=== PATIENT | male | born 2000 | race Caucasian/White ===

== ENCOUNTER 2021-12-09 10:22 | Emergency (ER) | payer SELFPAY ==
--- NOTE | ~2021-12-09 | XR_ITS ---
EXAMINATION: XR SHOULDER, LEFT CLINICAL INFORMATION: Status post left shoulder reduction. COMPARISON: None TECHNIQUE: Three views of the left shoulder. FINDINGS: There is good anatomic alignment of the left glenohumeral joint. The left acromio clavicular joint is intact. There is no acute fracture or dislocation. A corticated osseous density seen subjacent to the left glenohumeral joint. The left ribs are intact. The soft tissues are unremarkable. XR/XR shoulder LT min 2V IMPRESSION: 1. Good anatomic alignment of the left glenohumeral joint without acute fracture. Corticated osseous density subjacent to the left glenohumeral joint does not appear acute and could represent an ossification center or calcified loose body.
[2021-12-09 10:31] VITALS: BP 173/117; PULSE 88; RESP 16; TEMP 36.8; O2SAT 100; BMI 30.7
--- NOTE | 2021-12-09 10:47 | ED.UPPEXIN ---
HPI - Extremity Injury (Upper) General Chief Complaint: Extremity Injury, Upper <HERMAN Caceres - Last Filed: 12/09/21 11:16> Stated Complaint: dislocated l shoulder <HERMAN Caceres - Last Filed: 12/09/21 11:16> Time Seen by Provider: 12/09/21 10:25 <HERMAN Caceres - Last Filed: 12/09/21 11:16> Source: patient <HERMAN Caceres Last Filed: 12/09/21 11:16> Mode of arrival: ambulatory <HERMAN Caceres - Last Filed: 12/09/21 11:16> Limitations: no limitations <HERMAN Caceres Last Filed: 12/09/21 11:16> History of Present Illness HPI narrative: 21-year-old male with a past medical history of recurrent left shoulder dislocations presenting to the ED with complaints of a left shoulder dislocation after he shut his car door at the gas station. Reports that he went to the urgent care in due to not having insurance they explained to him that he would need to pay 250 dollar just to be assessed and he did not have the 250 dollars on him therefore he came here for further evaluation treatment. He reports that his friend drove him here. He denies any other injuries any paresthesia or any other complaints or concerns at this time. 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) <HERMAN Caceres - Last Filed: 12/09/21 11:16> Other injuries: none <HERMAN Caceres Last Filed: 12/09/21 11:16> Place: outdoors <HERMAN Caceres Last Filed: 12/09/21 11:16> Severity: severe <HERMAN Caceres Last Filed: 12/09/21 11:16> Severity scale (1-10): >10 <HERMAN Caceres - Last Filed: 12/09/21 11:16> Relieving factors: none <HERMAN Caceres - Last Filed: 12/09/21 11:16> Exacerbating factors: none <HERMAN Caceres Last Filed: 12/09/21 11:16> Associated symptoms: denies other symptoms <HERMAN Caceres Last Filed: 12/09/21 11:16> Related Data Allergies/Adverse Reactions: Allergies Allergy/AdvReac Type Severity Reaction Status Date / Time No Known Allergies Allergy Verified 12/09/21 10:25 <HERMAN Caceres Last Filed: 12/09/21 11:16> Review of Systems Review of Systems: Constitutional : No Weight loss, No Fever, No Chills, No Night Sweats, No Fatigue, No Malaise ENT/Mouth : No Hearing loss, No Ear Pain, No Nasal Congestion, No Sinus Pain, No Hoarseness, No sore throat, No Rhinorrhea, No Swallowing Difficulty Eyes: No Eye Pain, No Swelling, No Redness, No Foreign Body, No Discharge, No Vision Changes Cardiovascular : No Chest Pain, No SOB, No Dyspnea on Exertion, No Orthopnea, No Edema, No Palpitations Respiratory : No Cough, No Sputum, No Wheezing, No Smoke Exposure, No Dyspnea Gastrointestinal : No Nausea, No Vomiting, No Diarrhea, No Constipation, No abdominal Pain, No Hematochezia, No Melena Genitourinary : no irregular bleeding, No Dysuria, No Urinary Frequency, No Hematuria, No Urinary Incontinence, No Urgency, No Flank Pain, No Urinary Flow Changes, No Hesitancy Musculoskeletal : + left shoulder pain/deformity c limited ROM, No Myalgias, No Joint Swelling Skin : No Skin Lesions, No rash Neuro : No Weakness, No Numbness, No Paresthesias, No Loss of Consciousness, No Dizziness, No Headache Psych : No Anxiety/Panic, No Depression, No SI/HI/AH/VH, No Social Issues, Heme/Lymph: No Bruising, No Bleeding,No Lymphadenopathy Endocrine : No Polyuria, No Polydipsia, No Temperature Intolerance <HERMAN Caceres Last Filed: 12/09/21 11:16> Yes all other systems are reviewed and are negative <HERMAN Caceres Last Filed: 12/09/21 11:16> PMF Past Medical History Attestation statement: The following information was validated with the patient. <HERMAN Caceres Last Filed: 12/09/21 11:16> Medical History: Medical History Shoulder dislocation, recurrent <HERMAN Caceres - Last Filed: 12/09/21 11:16> Social History Social History: Social History Advance Directives: No Advance Directives Information Provided: No <HERMAN Caceres - Last Filed: 12/09/21 11:16> Physical Exam Vital Signs: Vital Signs: Last Vital Signs Temp 98.2 F 12/09/21 10:31 Pulse 88 12/09/21 10:31 Resp 16 12/09/21 10:31 BP 173/117 H 12/09/21 10:31 Pulse Ox 100 12/09/21 10:31 BMI result Body Mass Index 30.7 vital signs have been reviewed as normal and appeared to be correct. Blood pressure 173/117 Heart rate normal. Respiration rate normal. Temperature normal. Oxygen saturation normal. <HERMAN Caceres - Last Filed: 12/09/21 11:16> Appearance: Alert. Oriented X3. No acute distress. Head: Normal external exam. Normocephalic. Atraumatic. Eyes: PERRLA. EOMI. Conjunctiva and sclera normal. Eyelids normal. ENT: Pharynx normal. Uvula midline. Moist mucous membranes. Neck: Normal inspection. Neck supple. FROM. CVS: Normal heart rate and rhythm. Respiratory: No respiratory distress. Painless inspiration. Skin: Skin warm and dry. Normal skin color. Normal skin turgor. No rashes/lesions/lacerations noted. Extremities: Patient with tenderness palpation to the left shoulder unable to elevate the arm due to anterior shoulder dislocation which is obvious. Distal pulses are intact. No obvious ligamentous or tendon injury noted. No muscle rupture noted. No upper extremity edema noted. Otherwise all other Extremities exhibit normal range of motion. Extremities nontender. Neuro: Oriented X 3. No motor deficit. No sensory deficit. Reflexes normal. Normal steady gait. No focal neuro deficits noted. Vascular: + radial pulses/+ 2 distal pedal pulses/+2 dorsalis pedis b/l. Normal cap refill. No cyanosis noted to upper extremity nails and lower extremity toes nails. <HERMAN Caceres - Last Filed: 12/09/21 11:16> Course Course Course Narrative: 21-year-old male with a past medical history of recurrent left shoulder dislocations presenting to the ED with complaints of a left shoulder dislocation after he shut his car door [place] the gas station. Reports that he went to the urgent care in due to not having insurance they explained to him that he would need to pay 250 dollar just to be assessed and he did not have the 250 dollars on him therefore he came here for further evaluation treatment. He reports that his friend drove him here. He denies any other injuries any paresthesia or any other complaints or concerns at this time. Patient now status post anterior left shoulder dislocation reduction with scapula manipulation/Aura procedure performed by and Chey the other PA. then a sling was placed. Patient tolerated procedure well. Obtaining x-ray to evaluate for any other acute processes will DC home instructions return if any new or worsening symptoms to follow up with primary care provider. Patient understands agrees with this plan. <HERMAN Caceres - Last Filed: 12/09/21 11:16> MDM - Extremity Injury (Upper) Medical Records Attestation: I reviewed the patient's medical records. <HERMAN Caceres - Last Filed: 12/09/21 11:16> Imaging Data Left shoulder x-ray after status post reduction: Attestation: I personally reviewed and interpreted this imaging study as follows: <HERMAN Caceres - Last Filed: 12/09/21 11:16> Radiologist's impression: FINDINGS: There is good anatomic alignment of the left glenohumeral joint. The left acromio clavicular joint is intact. There is no acute fracture or dislocation. A corticated osseous density seen subjacent to the left glenohumeral joint. The left ribs are intact. The soft tissues are unremarkable.? XR/XR shoulder LT min 2V IMPRESSION: 1. Good anatomic alignment of the left glenohumeral joint without acute fracture. Corticated osseous density subjacent to the left glenohumeral joint does not appear acute and could represent an ossification center or calcified loose body. <HERMAN Caceres - Last Filed: 12/09/21 11:16> Procedures Orthopedic Joint Reduction Joint #1: Time Out Performed: Yes <HERMAN Caceres - Last Filed: 12/09/21 11:16> Side: left <HERMAN Caceres - Last Filed: 12/09/21 11:16> Joint Reduction Location: shoulder <HERMAN Caceres - Last Filed: 12/09/21 11:16> Shoulder Technique Used (if applicable): scapula manipulation and Aura <HERMAN Caceres - Last Filed: 12/09/21 11:16> Post-reduction neuro exam: intact <HERMAN Caceres - Last Filed: 12/09/21 11:16> Post-reduction vascular: intact <HERMAN Caceres - Last Filed: 12/09/21 11:16> Post Reduction X-Ray Obtained: Yes <HERMAN Caceres - Last Filed: 12/09/21 11:16> Post Reduction X-Ray Results: reduced <HERMAN Caceres - Last Filed: 12/09/21 11:16> Splint Applied: Yes <HERMAN Caceres - Last Filed: 12/09/21 11:16> Patient Tolerated Procedure: well and no complications <HERMAN Caceres - Last Filed: 12/09/21 11:16> Critical Care Time Critical Care Time Critical Care Time: Yes <HERMAN Ccaeres - Last Filed: 12/09/21 11:16> Total Critical Care Time: 60 <HERMAN Caceres - Last Filed: 12/09/21 11:16> Attestation: I personally attest to this time spent taking care of the patient <HERMAN Caceres - Last Filed: 12/09/21 11:16> Discharge Plan Discharge Clinical Impression: Shoulder dislocation, recurrent <HERMAN Caceres - Last Filed: 12/09/21 11:16> Patient Disposition: Home, Self-Care <HERMAN Caceres - Last Filed: 12/09/21 11:16> Instructions: Shoulder Dislocation (ED), Shoulder Immobilizer (ED) <HERMAN Caceres - Last Filed: 12/09/21 11:16> Referrals: Matthew Ascencio MD [Primary Care Provider] - Sandra Cardona MD [Physician] - 2 weeks (CALL TODAY TO MAKE A FOLLOW UP APPOINTMENT WITHIN THE NEXT 2 WEEKS ) <HERMAN Caceres - Last Filed: 12/09/21 11:16> Stand Alone Forms: Work/School Release <HERMAN Caceres - Last Filed: 12/09/21 11:16> Print Language: Taiwanese <HERMAN Caceres - Last Filed: 12/09/21 11:16>
== END 2021-12-09 11:32 | disposition home or self-care (01) ==
PROVIDERS: Emergency Provider Emergency Medicine; PCP Pediatrics
DX: M24.412 Recurrent dislocation, left shoulder (principal)
CPT/HCPCS: 23650; 73030; 99283; 99291